=== PATIENT | female | born 1930 ===

== ENCOUNTER 2019-06-15 10:01 | Emergency (ER) | payer OTHER ==
--- NOTE | 2019-06-15 10:46 | Emergency Department Report ---
ED Fall HPI - General Chief Complaint: Fall Stated Complaint: POSS BROKEN WRIST Time Seen by Provider: 06/15/19 10:28 Source: family, EMS, machine sizer Mode of arrival: Stretcher - History of Present Illness Initial Comments: 88-year-old female one in by EMS accompanied with son complains of a headache right wrist pain and left hip pain. Family reports that the dog came after her and she fail. Patient reports that she fell backwards and hit her head. Patient denies any loss of consciousness. Patient reports no past medical history had up surgical history of back surgery. She currently takes no medications on a daily basis and has no known drug allergies. MD Complaint: fall -: This morning Fall From: standing When Fall Occurred: 1 hour UNDER TRIMMER Fall Witnessed: yes, by family Place Fall Occurred: home Loss of Consciousness: none Prolonged Down Time?: no Symptoms Prior to Fall: none Location: head Location - Extremities: Left: Thigh (hip), Right: Hand (wrist) Severity scale (0 -10): 9 Quality: sharp, aching Context: tripped/slipped (over the dog) Associated Symptoms: headache, neck pain - Related Data Previous Rx's Medication Instructions Recorded Last Taken Type HYDROcodone/APAP 5-325 [Aguada 1 each PO Q6HR PRN #12 tablet 06/15/19 Unknown Rx 5/325] Ibuprofen [Motrin 600 MG tab] 600 mg PO Q8H PRN #21 tablet 06/15/19 Unknown Rx Allergies Allergy/AdvReac Type Severity Reaction Status Date / Time No Known Allergies Allergy Unverified 06/15/19 10:14 ED Review of Systems ROS: Stated complaint: POSS BROKEN WRIST Other details as noted in HPI Comment: All other systems reviewed and negative ED Past Medical Hx - Past Medical History Previous Medical History?: No - Surgical History Past Surgical History?: No - Social History Smoking Status: Never Smoker Substance Use Type: Alcohol - Medications Home Medications: Home Medications Medication Instructions Recorded Confirmed Last Taken Type HYDROcodone/APAP 5-325 [[place] 1 each PO Q6HR PRN #12 tablet 06/15/19 Unknown Rx 5/325] Ibuprofen [Motrin 600 MG tab] 600 mg PO Q8H PRN #21 tablet 06/15/19 Unknown Rx ED Physical Exam - General Limitations: Language Barrier General appearance: alert, in no apparent distress - Head Head exam: Present: atraumatic, normocephalic - Eye Eye exam: Present: PERRL, EOMI - ENT ENT exam: Present: mucous membranes moist - Neck Neck exam: Present: full ROM. Absent: tenderness - Respiratory Respiratory exam: Present: normal lung sounds bilaterally. Absent: respiratory distress - Cardiovascular Cardiovascular Exam: Present: regular rate, normal rhythm. Absent: systolic murmur, diastolic murmur, rubs, gallop - GI/Abdominal GI/Abdominal exam: Present: soft, normal bowel sounds. Absent: distended, tenderness, guarding - Rectal Rectal exam: Present: deferred - Expanded Upper Extremity Exam Right Shoulder Exam: Present: normal inspection, full ROM. Absent: tenderness, swelling Upper Arm exam: Present: normal inspection, full ROM. Absent: tenderness, swelling Elbow exam: Present: normal inspection, full ROM. Absent: tenderness, swelling Forearm Wrist exam: Present: tenderness, swelling, abrasion, deformity. Absent: full ROM Hand Wrist exam: Present: tenderness, swelling, abrasion, deformity Vascular: Present: normal capillary refill - Neurological Exam Neurological exam: Present: alert, oriented X3 - Psychiatric Psychiatric exam: Present: normal affect, normal mood - Skin Skin exam: Present: warm, dry, intact, normal color, abrasion (right wrist). Absent: rash ED Course Vital Signs 06/15/19 06/15/19 10:14 12:38 Temperature 97.3 F L Pulse Rate 62 78 Respiratory 24 16 Rate Blood Pressure 197/90 Blood Pressure 170/78 [Left] O2 Sat by Pulse 100 97 Oximetry - Orthopedic Joint Reduction Joint #1 Time Out Performed: Yes Side: right Joint Reduction Location: wrist Analgesia: hematoma block Local Anesthetic Used: Lidocaine 1% Amount of Anesthetic Used (mls): 6 Post-Reduction Neuro Exam: intact Post-Reduction Vascular Exam: intact Post Reduction X-Ray Obtained: Yes Splint Applied: Yes Patient Tolerated Procedure: well ED Medical Decision Making - Lab Data Result diagrams: 06/15/19 11:12 06/15/19 11:12 Laboratory Tests 06/15/19 06/15/19 06/15/19 11:12 11:12 11:44 WBC 10.4 RBC 4.88 Hgb 14.1 Hct 42.8 MCV 88 MCH 29 MCHC 33 RDW 15.1 Plt Count 223 Sodium 141 Potassium 4.1 Chloride 103.1 Carbon Dioxide 27 Anion Gap 15 BUN 16 Creatinine 0.6 L Estimated GFR > 60 BUN/Creatinine Ratio 27 Glucose 123 H Calcium 9.6 Urine Color Yellow Urine Turbidity Slightly-cloudy Urine pH 8.0 H Ur Specific Ad[place] 1.010 Urine Protein <15 mg/dl Urine Glucose (UA) Neg Urine Ketones Neg Urine Blood Neg Urine Nitrite Neg Urine Bilirubin Neg Urine Urobilinogen < 2.0 Ur Leukocyte Esterase Sm Urine WBC (Auto) 29.0 H Urine RBC (Auto) 3.0 U Epithel Cells (Auto) < 1.0 - Radiology Data Radiology results: report reviewed Patient: MATTHEW VERMA MR#: [id number] 6 : 1930 Acct:[id number] Age/Sex: 88 / F ADM Date: 06/15/19 Loc: ED Attending Dr: Ordering Physician: GLADYS LOPEZ MD Date of Service: 06/15/19 Procedure(s): XR wrist 3+V RT Accession Number(s): [id number] cc: GLADYS LOPEZ MD Fluoro Time In Minutes: EXAMINATION: Right wrist radiograph, 3 views, 06/15/2019 CLINICAL INFORMATION: Right wrist pain and swelling after fall COMPARISON: None. FINDINGS: There is an impacted slightly displaced fracture of the distal radius with associated soft tissue swelling. The distal ulna appears grossly intact. Signer Name: Judith Hill MD Signed: 06/15/2019 11:27 AM Workstation Name: [id number] Transcribed By: EB Dictated By: Judith Hill MD Electronically Authenticated By: Judith Hill MD Signed Date/Time: 06/15/191126 DD/ 1126 TD/TT: Patient: MATTHEW VERMA MR#: [id number] 6 : 1930 Acct:[id number] Age/Sex: 88 / F ADM Date: 06/15/19 Loc: ED Attending Dr: Ordering Physician: PANCHO CARBONE Date of Service: 06/15/19 Procedure(s): XR hips BILAT 2V w/pelvis Accession Number(s): [id number] cc: PANCHO CARBONE Fluoro Time In Minutes: EXAMINATION: Bilateral hip radiograph series, 2 views, 06/15/2019 CLINICAL INFORMATION: Bilateral hip pain after fall. COMPARISON: None. FINDINGS: There is no evidence of acute fracture or dislocation of either hip. Signer Name: Judith Hill MD Signed: 06/15/2019 11:26 AM Workstation Name: [id number] Transcribed By: EB Dictated By: Judith Hill MD Electronically Authenticated By: Judith Hill MD Signed Date/Time: 06/15/19 1126 DD/ 1125 TD/TT: Patient: MATTHEW VERMA MR#: [id number] 6 : 1930 Acct:[id number] Age/Sex: 88 / F ADM Date: 06/15/19 Loc: ED Attending Dr: Ordering Physician: PANCHO CARBONE Date of Service: 06/15/19 Procedure(s): CT head/brain wo con Accession Number(s): [id number] cc: PANCHO CARBONE CT BRAIN: 06/15/2019 INDICATION / CLINICAL INFORMATION: fall hit head. COMPARISON: None available. FINDINGS: BRAIN/INTRACRANIAL STRUCTURES: Unenhanced CT images of the brain demonstrate no evidence of acute intracranial abnormality. Ventricles and sulci are slightly prominent in size, consistent with normal age- related atrophic change. There is no evidence of acute ischemic injury, hemorrhage, or mass. There are no abnormal extra- axial fluid collections. Atherosclerotic vascular calcifications are present in the distal internal carotid arteries and vertebral arteries. There appears to be scalp edema and scalp hematoma formation near the vertex. EXTRACRANIAL STRUCTURES: Unremarkable. IMPRESSION: No acute abnormality. Chronic and age-related changes. All CT scans at this location are performed using dose reduction to ALARA by means of automated exposure control. Signer Name: Rober Levy MD Signed: 06/15/2019 11:46 AM Workstation Name: [id number] Transcribed By: RENÉ Dictated By: Rober Levy MD Electronically Authenticated By: Rober Levy MD Signed Date/Time: 06/15/19 1146 DD/ 1144 TD/TT: Patient: MATTHEW VERMA MR#: [id number] 6 : 1930 Acct:[id number] Age/Sex: 88 / F ADM Date: 06/15/19 Loc: ED Attending Dr: Ordering Physician: PANCHO CARBONE Date of Service: 06/15/19 Procedure(s): CT cervical spine wo con Accession Number(s): [id number] cc: PANCHO CARBONE CT CERVICAL SPINE: 06/15/2019 INDICATION / CLINICAL INFORMATION: fall hit head. Trauma COMPARISON: None available. FINDINGS: CT images of the cervical spine were obtained. Images are evaluated in the axial, coronal, and sagittal planes. There is no evidence of acute osseous injury. Reversal of cervical lordosis is centered at the C4 level. Degenerative disc and facet changes are present throughout the cervical spine. There is no evidence of central osseous canal narrowing. Foraminal narrowing is present on the left side at the C3-4 level. LEVEL BY LEVEL ANALYSIS: . CRANIOCERVICAL JUNCTION: Unremarkable. PARASPINAL STRUCTURES: Unremarkable. IMPRESSION: No acute abnormality. Degenerative changes. All CT scans at this location are performed using dose reduction to ALARA by means of automated exposure control. Signer Name: Rober Levy MD Signed: 06/15/2019 11:49 AM Workstation Name: [id number] Transcribed By: AO Dictated By: Rober Levy MD Electronically Authenticated By: Rober Levy MD Signed Date/Time: 06/15/19 1149 DD/ 1146 TD/TT: - Medical Decision Making 88-year-old female one in by EMS accompanied with son complains of a headache right wrist pain and left hip pain. Family reports that the dog came after her and she fail. Patient reports that she fell backwards and hit her head. Patient denies any loss of consciousness. Patient reports no past medica l history had up surgical history of back surgery. She currently takes no medications on a daily basis and has no known drug allergies. X-rays of right wrist, right forearm, CT head, CT neck and x-ray of bilateral hips. Labs CBC BMP and urinalysis. Patient's right wrist was reduced by this provider. Post reduction films show improvement of alignment. Patient be referred to Dr. Courtney in or resurgence orthopedic provider. I discussed the patient in send to be sure the patient does not operate heavy machinery make any informed decisions while taking the Aguada for pain. Family verbalized understanding. - Differential Diagnosis head injury, fractured wrist, fractured pelvis, cervical fracture Critical care attestation.: If time is entered above; I have spent that time in minutes in the direct care of this critically ill patient, excluding procedure time. ED Disposition Clinical Impression: Fall Qualifiers: Encounter type: initial encounter Qualified Code(s): W19.XXXA - Unspecified fall, initial encounter Wrist fracture, right Qualifiers: Encounter type: initial encounter Fracture type: closed Qualified Code(s): S62.101A - Fracture of unspecified carpal bone, right wrist, initial encounter for closed fracture Contusion of left hip Qualifiers: Encounter type: initial encounter Qualified Code(s): S70.02XA - Contusion of left hip, initial encounter Disposition: TO HOME OR SELFCARE Is pt being admited?: No Does the pt Need Aspirin: No Condition: Stable Instructions: Wrist Fracture in Adults (ED), Fall Prevention for Older Adults (ED) Additional Instructions: Take pain medication as needed. Please do not operate heavy machinery while taking Aguada. Please be extra cautious with taking Aguada as this can make you sleepy or drowsy. It's very important for you to follow up with orthopedic provider I have listed to below for your convenience. Prescriptions: Ibuprofen [Motrin 600 MG tab] 600 mg PO Q8H PRN #21 tablet PRN Reason: Pain HYDROcodone/APAP 5-325 [Agu[place] 5/325] 1 each PO Q6HR PRN #12 tablet PRN Reason: Pain [facility] [Primary Care Provider] - 3-5 Days INES COURTNEY MD [Staff Physician] - 3-5 Days [facility] [Provider Group] - 3-5 Days Print Language: KINYARWANDA
[2019-06-15] MEDS ORDERED: MORPHINE IV ONE ×2 (11:30→13:06)
[2019-06-15] MEDS ORDERED: ZOFRAN IV ONE ×2 (11:30→13:06)
--- NOTE | 2019-06-15 11:30 | XRay Report ---
EXAMINATION: Bilateral hip radiograph series, 2 views, 06/15/2019 CLINICAL INFORMATION: Bilateral hip pain after fall. COMPARISON: None. FINDINGS: There is no evidence of acute fracture or dislocation of either hip. Signer Name: Judith Hill MD Signed: 06/15/2019 11:26 AM Workstation Name: [id number]
--- NOTE | 2019-06-15 11:32 | XRay Report ---
EXAMINATION: Right wrist radiograph, 3 views, 06/15/2019 CLINICAL INFORMATION: Right wrist pain and swelling after fall COMPARISON: None. FINDINGS: There is an impacted slightly displaced fracture of the distal radius with associated soft tissue swelling. The distal ulna appears grossly intact. Signer Name: Judith Hill MD Signed: 06/15/2019 11:27 AM Workstation Name: [id number]
[2019-06-15 11:33] LABS: Hematocrit 42.8 % (30.3-42.9); Hemoglobin 14.1 gm/dl (10.1-14.3); Mean Corpuscular HGB Conc 33 % (30-34); Mean Corpuscular Volume 88 fl (79-97); Platelet Count 223 K/mm3 (140-440); Red Blood Count 4.88 M/mm3 (3.65-5.03); Red Cell Distribution Width 15.1 % (13.2-15.2)
[2019-06-15] MEDS ORDERED: MORPHINE ONE (11:34)
[2019-06-15] MEDS ORDERED: ZOFRAN ONE (11:34)
--- NOTE | 2019-06-15 11:51 | Cat Scan Report ---
CT BRAIN: 06/15/2019 INDICATION / CLINICAL INFORMATION: fall hit head. COMPARISON: None available. FINDINGS: BRAIN/INTRACRANIAL STRUCTURES: Unenhanced CT images of the brain demonstrate no evidence of acute int racranial abnormality. Ventricles and sulci are slightly prominent in size, consistent with normal age-related atrophic ashby ge. There is no evidence of acute ischemic injury, hemorrhage, or mass. There are no abnormal extra-axial fluid collections. Atherosclerotic vascular calcifications are present in the distal internal carotid arteries and verte bral arteries. There appears to be scalp edema and scalp hematoma formation near the vertex. EXTRACRANIAL STRUCTURES: Unremarkable. IMPRESSION: No acute abnormality. Chronic and age-related changes. All CT scans at this location are performed using dose reduction to ALARA by means of automated expos ure control. Signer Name: Rober Levy MD Signed: 06/15/2019 11:46 AM Workstation Name: [id number]
--- NOTE | 2019-06-15 11:53 | Cat Scan Report ---
CT CERVICAL SPINE: 06/15/2019 INDICATION / CLINICAL INFORMATION: fall hit head. Trauma COMPARISON: None available. FINDINGS: CT images of the cervical spine were obtained. Images are evaluated in the axial, coronal, and sagit lavonne planes. There is no evidence of acute osseous injury. Reversal of cervical lordosis is centered at the C4 level. Degenerative disc and facet changes are present throughout the cervical spine. There is no evidence o f central osseous canal narrowing. Foraminal narrowing is present on the left side at the C3-4 level. LEVEL BY LEVEL ANALYSIS: . CRANIOCERVICAL JUNCTION: Unremarkable. PARASPINAL STRUCTURES: Unremarkable. IMPRESSION: No acute abnormality. Degenerative changes. All CT scans at this location are performed using dose reduction to ALARA by means of automated expos ure control. Signer Name: Rober Levy MD Signed: 06/15/2019 11:49 AM Workstation Name: [id number]
[2019-06-15 11:55] LABS: BUN/Creatinine Ratio 27; Blood Urea Nitrogen 16 mg/dL (7-17); Calcium 9.6 mg/dL (8.4-10.2); Hemolysis Index 54
[2019-06-15 12:02] LABS: Bilirubin,Urine NEG (Negative); Blood,Urine NEG (Negative); Color,Urine Yellow (Yellow); Protein,Urine <15 mg/dL mg/dL (Negative); Urobilinogen,Urine < 2.0 mg/dL (<2.0)
[2019-06-15 12:31] LABS: Band Neutrophils # (Manual) 0.9 K/mm3; Basophils % (Manual) 0 % (0.0-1.8); Total Cells Counted 100
[2019-06-15 12:32] LABS: Anisocytosis 1+
--- NOTE | 2019-06-15 12:33 | XRay Report ---
RIGHT FOREARM 2 VIEWS INDICATION / CLINICAL INFORMATION: arm trauma with swelling. COMPARISON: None available. FINDINGS: Previously described distal radial and ulnar styloid fractures. No additional fractures. Signer Name: Warren Reid MD Signed: 06/15/2019 12:29 PM Workstation Name: [id number]
[2019-06-15 12:39] VITALS: BP 170/78
--- NOTE | 2019-06-15 14:39 | XRay Report ---
RIGHT WRIST 2 VIEWS INDICATION / CLINICAL INFORMATION: post reduction. COMPARISON: None available. FINDINGS: Fiberglas cast in position. There is still moderate displacement of the distal radial fracture. Signer Name: Warren Reid MD Signed: 06/15/2019 2:34 PM Workstation Name: [id number]
== END 2019-06-15 14:06 | disposition home or self-care (01) ==
LOC: ED 10:01
DX: S62.101A Fracture of unspecified carpal bone, right wrist, initial encounter for closed fracture (principal); S70.02XA Contusion of left hip, initial encounter; R51 Headache; W19.XXXA Unspecified fall, initial encounter; Y93.89 Activity, other specified; Y92.89 Other specified places as the place of occurrence of the external cause; Y99.8 Other external cause status
CPT/HCPCS: 25600; 36415; 70450; 72125; 73090; 73100; 73110; 73521; 80048; 81001; 85007; 85025; 87076; 87086; 87186; 96374; 96375; 96376; 99285; J2270; J2405